=== PATIENT | male | born 1965 | race African-American/Black ===

== ENCOUNTER 2018-09-09 23:45 | Emergency (ER) | payer SELFPAY ==
[~2018-09-09] VITALS: Ht 180.3 cm; Wt 104.0 kg
[2018-09-09 23:50] VITALS: BP 139/90
== END 2018-09-10 00:17 | disposition left against medical advice (07) ==
LOC: ER 23:45
DX: R07.89 Other chest pain (principal); M79.601 Pain in right arm; I10 Essential (primary) hypertension; Z53.21 Procedure and treatment not carried out due to patient leaving prior to being seen by health care provider
CPT/HCPCS: 93005